=== PATIENT | female | born 1990 | race Caucasian/White ===

== ENCOUNTER → 2018-11-23 23:47 | Outpatient (CLI) | payer MEDICAID, SELFPAY ==
[2018-11-23 14:31] VITALS: BMI 44.1
[2018-11-24 01:50] LABS: Chlamydia Trachomatis by PCR Negative (Negative); Neisserai gonorrhoeae by PCR Negative (Negative); Probe Check PASS; Sample Adequacy Control PASS; Specimen Processing Control PASS
== END ==
PROVIDERS: Family Provider Internal Medicine; PCP Internal Medicine; Referring Provider Nurse Practitioner Women's Health; Visit Provider Nurse Practitioner Women's Health
DX: Z11.3 Encounter for screening for infections with a predominantly sexual mode of transmission (principal)
CPT/HCPCS: 87491; 87591

== ENCOUNTER → 2018-11-24 08:40 | Outpatient (CLI) | payer MEDICAID, SELFPAY ==
[2018-11-23 14:31] VITALS: BMI 44.1
[2018-11-29 11:07] LABS: HPV APTIMA, High Risk Negative (Negative)
== END ==
PROVIDERS: Referring Provider Nurse Practitioner Women's Health; Visit Provider Nurse Practitioner Women's Health
DX: Z12.4 Encounter for screening for malignant neoplasm of cervix (principal)
CPT/HCPCS: 87624; 88175; G0145

== ENCOUNTER 2019-01-25 16:00 | Outpatient (RCR) | payer MEDICAID, SELFPAY ==
[2018-12-17 14:55] VITALS: BMI 47.0
== END 2019-02-08 23:59 ==
LOC: NS 16:00
PROVIDERS: PCP Internal Medicine; Visit Provider Nurse Practitioner Family
DX: E66.01 Morbid (severe) obesity due to excess calories (principal); Z68.42 Body mass index [BMI] 45.0-49.9, adult; Z71.3 Dietary counseling and surveillance
CPT/HCPCS: 97802; 97803

== ENCOUNTER 2019-02-21 14:31 | Outpatient (RCR) | payer MEDICAID, SELFPAY ==
[2019-01-27 15:05] VITALS: BMI 47.0
== END 2019-03-11 23:59 ==
LOC: NS 14:31
PROVIDERS: PCP Internal Medicine; Visit Provider Nurse Practitioner Family
DX: E66.01 Morbid (severe) obesity due to excess calories (principal); Z68.42 Body mass index [BMI] 45.0-49.9, adult; Z71.3 Dietary counseling and surveillance
CPT/HCPCS: 97803

== ENCOUNTER 2019-06-21 15:20 | Outpatient (RCR) | payer MEDICAID, SELFPAY ==
[2019-01-27 15:05] VITALS: BMI 47.0
== END 2019-07-11 23:59 ==
LOC: NS 15:20
PROVIDERS: PCP Internal Medicine; Visit Provider Nurse Practitioner Family
DX: E66.01 Morbid (severe) obesity due to excess calories (principal); Z68.42 Body mass index [BMI] 45.0-49.9, adult; Z71.3 Dietary counseling and surveillance
CPT/HCPCS: 97803

== ENCOUNTER 2021-01-16 14:16 | Outpatient (RCR) | payer OTHER, SELFPAY ==
[2020-05-30 14:43] VITALS: BMI 47.0
== END 2021-03-19 23:59 ==
LOC: IMMUN 14:16
PROVIDERS: Visit Provider Family Medicine
DX: Z23 Encounter for immunization (principal)
CPT/HCPCS: 0001A; 0002A; 91300

== ENCOUNTER 2022-01-07 19:44 | Emergency (ER) | payer OTHER, SELFPAY ==
[2022-01-07 19:44] VITALS: BP 157/90; PULSE 104; RESP 18; TEMP 36.3; O2SAT 100; BMI 50.1
[2022-01-07 21:21] VITALS: BP 144/77; PULSE 94; RESP 16; TEMP 36.3; O2SAT 100
--- NOTE | 2022-01-07 21:50 | ED.VIS.LOWEX ---
HPI History of Present Illness HPI Narrative: Patient presents with pain in her right lower leg that has been getting worse over the past 2 weeks. Patient states it has gradually gotten worse over the past 2 weeks. Patient states it has been constant. Patient describes her pain as dull. Patient states it is worse whenever she touches the area. Patient states nothing seems to make it better. Patient denies any paresthesias or weakness. Patient went to the urgent [facility] and was referred to the emergency department for possible blood clot. Chief Complaint: Lower Extremity Injury Informant: patient Onset/Context/Timing Onset: Weeks (2) Context: Gradual Onset Timing: Continuous Quality of Pain: Dull Location: Right lower extremity Worsened by: Palpation Relieved by: Nothing Associated Symptoms Associated Symptoms: Negative for Parasthesia, Weakness and Loss of Funtion [facility] Medical History (Updated 01/07/22 @ 23:[address] Amish Steele DO) Abnormal Pap smear of cervix Allergy/AdvReac Type Severity Reaction Status Date / Time No Known Allergies Allergy Verified 01/07/22 19:46 Family History Grandmother Breast cancer Grandfather Lung cancer Mother Hypertension Sister Hypertension Depression Surgical History History of colposcopy S/P Social History Smoking Status: Current every day smoker tobacco type: cigarettes alcohol intake: current details: occasionally substance use type: does not use caffeine: Yes what type of physical activity do you participate in: walking frequency: 1-2 times per week seatbelt use: always do you feel safe at home: Yes additional social history: Patient works at [employer] ED Constitutional Constitutional ED: Denies chills or fever(s) Eyes Eyes: Denies blurry vision or change in vision ENT ENT ED: Denies rhinorrhea or sore throat Cardiovascular Cardiovascular: Denies chest pain or palpitations Respiratory/Chest Respiratory/Chest: Denies cough or dyspnea Gastrointestinal Gastrointestinal: Denies nausea or vomiting Genitourinary Genitourinary ED: Denies dysuria or hematuria Musculoskeletal Musculoskeletal: Denies back pain or neck pain Integumentary Denies abscess or rash Neurologic Neurologic: Denies headache(s) or weakness Allergic/Immunologic Allergic/Immunologic ED: Denies mouth swelling or urticaria EXAM Physical Exam Const Vital Signs: 01/07/22 19:44 01/07/22 21:21 Temperature 97.3 F L 97.3 F L Temperature Source Temporal Temporal Pulse Rate 104 H 94 Respiratory Rate 18 16 Blood Pressure 157/90 H 144/77 H Blood Pressure Mean 112 99 Pulse Ox 100 100 Oxygen Delivery Method Room Air Room Air Positive well nourished and well developed General Appearance ED: well developed and NAD HEENT Reports moist mucous membranes Neck full ROM Extremity Extremity Narrative: There is tenderness and mild erythema over the posterior aspect of the right calf. There is also some erythema and tenderness over the anterior aspect of the right thigh. There is mild warmth. There is full range of motion of the right knee and ankle. Sensation was intact to light touch bilateral lower extremities. Pedal pulses are equal bilaterally. Neuro oriented x3, CN's II-XII intact bilaterally, moves all extremities and no sensory deficits noted Sensorium / Orientation: alert Motor Exam: strength 5/5 throughout MDM MDM MDM Narrative Medical decision making narrative: CBC was within normal limits. Basic metabolic profile was essentially within normal limits. Venous duplex of the right lower extremity was obtained. There is superficial thrombophlebitis. There is no evidence of DVT. Patient was advised of her findings. Patient was instructed to use warm compresses to her right leg. Patient was instructed to follow-up with her primary care physician in 5 to 7 days. Patient understood and was agreeable with the plan. All questions were answered. Lab Data Attestation: I reviewed the patient's lab results. Labs: Laboratory Results - last 24 hr 01/07/22 01/07/22 22:00 22:00 WBC 6.7 RBC 4.79 Hgb 13.8 Hct 41.9 MCV 87.5 MCH 28.8 MCHC 32.9 RDW Std Deviation 43.5 RDW Coeff of Nikole 13.5 Plt Count 218 MPV 10.8 Immature Gran % (Auto) 0.300 Neut % (Auto) 32.0 L Lymph % (Auto) 50.9 H Cobb % (Auto) 7.2 Eos % (Auto) 8.1 H Baso % (Auto) 1.5 H Absolute Neuts (auto) 2.2 Absolute Lymphs (auto) 3.41 Nucleated RBC % 0 Differential Comment SCANNED Atypical Lymphocytes RARE Sodium 140 Potassium 3.4 L Chloride 109 H Carbon Dioxide 25.0 Anion Gap 6 BUN 11 Creatinine 0.91 Estim Creat Clear Calc 85.51 Est GFR (MDRD) Af Amer 91 Est GFR (MDRD) Non-Af 75 BUN/Creatinine Ratio 12.0 Glucose 96 Calcium 8.5 Discharge Plan Triage Chief Complaint: Lower Extremity Injury ED Provider: Amish Steele Dx/Rx/DC Orders Clinical Impression: Superficial thrombophlebitis, Morbid obesity with BMI of 45.0-49.9, adult Instructions: ED Thrombophlebitis, Superficial Primary Care Provider: Care Physician,No Primary Referrals: Amish Danielson MD [STAFF PHYSICIAN] - 5-7 Days Care Physician,No Primary [Primary Care Provider] - Disposition Disposition: Home, Self Care
--- NOTE | 2022-01-07 21:51 | US_ITS ---
STUDY: VENOUS DOPPLER ULTRASOUND - RIGHT LOWER EXTREMITY REASON FOR EXAM: Female, 31 years old. RT LATERAL THIGH REDNESS AND PAIN TECHNIQUE: Ultrasound evaluation of the deep vein system to include beavers-scale imaging and compression was performed. Beavers-scale imaging and Doppler sonographic evaluation, including duplex spectral analysis and qualitative color flow sonography, was performed. COMPARISON: None. FINDINGS: Common Femoral Vein: Normal compression, spontaneity and augmentation. Normal color Doppler. Deep Femoral Vein: Normal compression, spontaneity and augmentation. Normal color Doppler. Femoral Proximal: Normal compression, spontaneity and augmentation. Normal color Doppler. Femoral Middle: Normal compression, spontaneity and augmentation. Normal color Doppler. Femoral Distal: Normal compression, spontaneity and augmentation. Normal color Doppler. Popliteal Vein: Normal compression, spontaneity and augmentation. Normal color Doppler. Posterior Tibial Vein: Normal compression, spontaneity and augmentation. Normal color Doppler. Peroneal Vein: Normal compression, spontaneity and augmentation. Normal color Doppler. SUPERFICIAL VEINS: Tortuous superficial varicosities are seen along the lateral aspect of the right thigh and lateral aspect of the proximal calf; these varicosities are noncompressible due to echogenic intraluminal thrombus. These thrombosed varicosities lie in the area of redness and pain. US/Venous Duplex Imag/Limited/Uni IMPRESSION: Findings of superficial venous thrombosis/thrombophlebitis along the lateral aspect of the right thigh and proximal calf. Negative for DVT. Electronically Signed: Nate Stevens MD at 23:39 EDT ,
[2022-01-07 22:11] LABS: Absolute Lymphocyte Count 3.41 X10^3/uL (0.83-4.51); Absolute Neutrophil Count 2.2 X10^3/uL (2.0-7.7); Basophil% 1.5 % (0-1); Eosinophil# 0.54 X10^3/uL; Eosinophils% 8.1 % (0-5); Hematocrit 41.9 % (37-47); Hemoglobin 13.8 g/dL (12.0-15.0); Lymphocyte # 3.41 X10^3/ul (0.83-4.51); Lymphocyte % 50.9 % (19-41); Mean Corp Hgb Conc 32.9 g/dL (32-36); Mean Corpuscular Hgb 28.8 pg (27.0-32.0); Mean Corpuscular Volume 87.5 fL (81-99); Mean Platelet Vol. 10.8 fl (6.2-12.0); Monocyte# 0.48 X10^3/uL; Monocyte% 7.2 % (0-10); NRBC Flagged by Analyzer 0 % (0-5); Neutrophil # 2.15 X10^3/uL (2.7-7.7); POSITIVE MORPHOLOGY YES; Platelet Count 218 K/mm3 (150-450); RBC Distribution Width CV 13.5 % (11.6-14.6); RBC Distribution Width SD 43.5 fl (35.1-43.9); Red Blood Count 4.79 M/mm3 (4.2-5.4); White Blood Count 6.7 K/mm3 (4.4-11.0)
[2022-01-07 22:19] LABS: Differential Indicated SCAN CRITERIA MET
[2022-01-07 22:25] LABS: Anion Gap 6 (5-15); BUN 11 mg/dL (7-18); Calcium,Total 8.5 mg/dL (8.5-10.1); Chloride 109 mmol/L (98-107); Creatinine, Serum 0.91 mg/dL (0.55-1.02); EST Glomerular Filtration Rate 75 mL/min (>60); Est Glom Filt Rate - Afr Amer 91 mL/min (>60); Estimated Creatinine Clearance 85.51 ml/min; Glucose 96 mg/dL (74-106); Potassium 3.4 mmol/L (3.5-5.1); Sodium Level 140 mmol/L (136-145)
[2022-01-07 23:04] LABS: Atypical Lymphocyte RARE %; Differential Comment SCANNED
[2022-01-07 23:56] VITALS: BP 144/80; PULSE 100; RESP 16; O2SAT 95
== END 2022-01-08 00:03 | disposition home or self-care (01) ==
PROVIDERS: Emergency Provider Emergency Medicine; Visit Provider Emergency Medicine
DX: I80.01 Phlebitis and thrombophlebitis of superficial vessels of right lower extremity (principal); E66.01 Morbid (severe) obesity due to excess calories; Z68.42 Body mass index [BMI] 45.0-49.9, adult; F17.210 Nicotine dependence, cigarettes, uncomplicated
CPT/HCPCS: 80048; 85025; 93971; 99282; A4216